=== PATIENT | female | born 1950 | race Caucasian/White ===

== ENCOUNTER 2019-07-31 08:05 | Day surgery (SDC) | payer MEDICARE, OTHER, SELFPAY ==
--- NOTE | 2019-07-28 14:02 | PCM.HP.BLA ---
History and Physical Date of Admission: 07/31/19 HPI: The patient is a 69 year old female presenting for pre-operative visit. She is scheduled for?hysteroscopy D&C with polyp resection, for?PMB/polyp on?07/31/2019. ??Procedure discussed along with risks, benefits and complications. ?Other alternatives discussed for management. Consent form signed??Yes.? PAST MEDICAL HISTORY PAST MEDICAL HISTORY Diagnosis Date ? Atrial fibrillation (HCC) 12/26/03 ? [place] ? ? Obesity ? ? PAC (premature atrial contraction) ? ? PMH - PAST MEDICAL HISTORY OF ? ? previous left ankle fracture with cartilage damage ? Unspecified hypothyroidism ? ? Hypothyroidism ? ? PAST SURGICAL HISTORY PAST SURGICAL HISTORY Procedure Laterality Date ? AFIB ABLATION/PULM VEIN ISOLATION ? 11/18/2015 ? cryo ? AFIB ABLATION/PULM VEIN ISOLATION ? 11/18/2015 ? APPENDECTOMY ? ? ? COLONOSCOPY ? ? ? remote ? FOOT SURGERY HX Left 03/25/2019 ? HYSTEROSCOPY, SURGICAL; WITH SAMPLI ? 04/08/15 ? polyp resection ? PAST SURGICAL HISTORY OF ? ? ? bilateral carpal tunnel repair ? PAST SURGICAL HISTORY OF ? ? ? Fall's neuroma left foot ? PAST SURGICAL HISTORY OF ? 2003 ? right ankle fusion ? REMOVE TONSILS/ADENOIDS,<12 Y/O ? ? ? Tonsil/adenoidectomy ? ? CURRENT MEDICATIONS Current Outpatient Medications Medication Sig Dispense Refill ? levothyroxine (SYNTHROID) 75 mcg tablet ? betamethasone valerate 0.1 % ointment Apply 1 application to affected area twice daily. until flare decreases then twice weekly as maintanence 30 g 1 ? apixaban (ELIQUIS) 5 mg tab(s) TAKE ONE (1) TABLET BY MOUTH TWICE DAILY 180 tablet 3 ? ramipril (ALTACE) 10 mg capsule Take 10 mg by mouth daily at bedtime. ? ? ? amLODIPine (NORVASC) 5 mg tablet Take 5 mg by mouth once daily. ? ? ? No current facility-administered medications for this visit.? ? ALLERGIES:?Codeine; Protonix [Pantoprazole Sodium]; Sulfa (Sulfonamide Antibiotics) ? PERSONAL HISTORY:? SOCIAL HISTORY Social History ? Tobacco Use ? Smoking status: Never Smoker ? Smokeless tobacco: Never Used Substance Use Topics ? Alcohol use: No ? Drug use: No ? FAMILY HISTORY:? FAMILY HISTORY FAMILY HISTORY Problem Relation Age of Onset ? Heart Mother ? age 54 due to heart disease or stroke ? Cancer Father ? age 71 due to multiple myeloma ? None Sister ?alive and well,age 52 ? other (Other) Brother ? age 20 due to MVA ? REVIEW OF SYMPTOMS: GENERAL: denies fevers or chills ENDOCRINOLOGY: has not been on steroids Cardiology : denies palpitations or chest pain Respiratory: denies SOB or cough Hematology:?on Eliquis Allergy: Denies history of personal or family history of allergy to anesthesia ? ? PHYSICAL EXAMINATION: ? VITALS:?Blood pressure 122/80, pulse 68, resp. rate 16, height 5' 6 (1.676 m), weight 232 lb (105.2 kg), last menstrual period 07/14/2004. ? GENERAL:??The patient is well nourished, well hydrated in no acute distress. ?, The patient is oriented to time, place, and person. NECK:?Supple. No lynphadenopathy, normal thyroid, no thyromegaly. LUNGS:?Clear to auscultation bilaterally. no wheezes, rhonchi or rales HEART:?Regular rate and rhythm, Normal heart sounds and No murmurs or gallops ? IMPRESSION:?Endometrial polyp and PMB ? PLAN:???The risks/benefits/alternatives and personal involved for the planned?hysteroscopy D&C w/ polyp resection?were reviewed with the patient. Her questions were answered to her satisfaction and she desires to proceed. ?understands risk of sergei COVID 19?Consent was signed. ?I reviewed with her postop instructions and expectations. ? ? I have reviewed and updated past medical and surgical history, medications and allergies. this history and physical was completed in my office on 07/28/2019.
[2019-07-31] VITALS (7 sets, daily range): BP systolic 92–125; BP diastolic 57–83; PULSE 68–78; RESP 16; TEMP 35.9–36.6; O2SAT 96–99; BMI 37.6
--- NOTE | 2019-07-31 | EMB_PTH ---
PATIENT: TONY DEAN [place] [facility] [id number] AGE/SX: 69/F ROOM: RE07/31/[address]: Dr. Ramona Burch MD : [id number] BED: DIS: 07/31/2019 SPEC #: [id number] RECD: 07/31/19 10:50 STATUS: JORDI RENNY #: [id number] NU: 07/31/19 00:[address]: Ramona Burch DEPT: SURGICAL PATHOLOGY RECD BY: Joaquín Chowdary Tissues: Endometrium, NOS Procedures: Surgery Specimen Level IV HEADER OPERATION: Hysteroscopy, dilation and curettage PRE-OP DIAGNOSIS: Endometrial polyp, postmenopausal bleeding TISSUE SUBMITTED: Endometrial curettings MICROSCOPIC DIAGNOSIS Endometrial curettings: Superficial fragments of benign endometrial tissue consistent with inactive endometrium. Negative for hyperplasia. Fragments of benign ecto- and endocervical epithelium. SJ:melinda 08/01/19 COMMENT Please make reference to previous specimen ([id number]) endocervical polyp, biopsy with diagnosis of benign endometrial polyp with simple cystic hyperplasia without atypia and endometrial curettings and polyp with diagnosis of simple cystic hyperplasia without atypia. MICROSCOPIC DESCRIPTION Slides are reviewed. GROSS DESCRIPTION Received in fixative is one container labeled with the patient's name and designated endometrial curettings. The specimen consists of multiple fragments of hemorrhagic mucoid tissue that in aggregate measure 3 x 2.5 x 0.1 cm. The specimen is totally submitted in one cassette. / SJ:rg 07/31/19 TC:5 CPT: 32444
[2019-07-31] MEDS: Lactated Ringers 1,000 ML 100 ML IV (08:45)
[2019-07-31] MEDS: Acetaminophen 500 MG Tablet 1000 MG PO (08:47)
[2019-07-31] MEDS: Ketorolac 30 MG/ML Syringe IV (08:47)
--- NOTE | 2019-07-31 09:38 | DCINST_ITS ---
Discharge Diet: No Restrictions Discharge Activity: Return to Normal Activity, May Shower, May Take a Tub Bath - in 2 weeks. Return to work on:: 07/21/19 May shower in (days): 1 May resume sexual activity in: 2 weeks Call your doctor if your incision/area has: Sudden Increased Bleeding, Foul Smelling Discharge Call your doctor if you observe: Fever of 101 or Higher Allergies/Adverse Reactions: Allergies rivaroxaban [From Xarelto] Allergy (Verified 07/31/19 08:24) severe vaginal bleeding Sulfa (Sulfonamide Antibiotics) Allergy (Verified 07/31/19 08:24) Unknown codeine Adverse Reaction (Verified 07/31/19 08:24) Nausea Medications to take at Discharge Amlodipine [Norvasc] 5 mg PO DAILY #30 tablet 01/19/15 Levothyroxine [Synthroid] 75 mcg PO DAILY 04/07/15 Apixaban [Eliquis] 5 mg PO BID 07/28/19 Ramipril [Altace] 10 mg PO QHS 07/28/19 traMADol [Ultram] 50 mg PO Q6H PRN PRN 07/28/19 Orders to be completed after discharge: CORONAVIRUS 19, DENNIS Time Frame: 07/30/19, Facility: [facility], Location: Laboratory Primary Care Physician: EVANGELISTA MARTINEZ [Other] Test Results: Test results from this visit will be discussed in further detail at your follow- up appointment, if applicable. Please Follow Up With: Ramona Burch MD - [phone] When: 2-4 weeks or as needed. It can be a virtual visit
--- NOTE | 2019-07-31 10:12 | PCM.OPRPT ---
Report of Operation Date of Procedure: 07/31/19 Pre-Operative Diagnosis: PMB Post-Operative Diagnosis: same Surgery/Procedure Performed:: hysteroscopy D&C Description of Surgical Findings:: atrophic endometrium, normal cervix and vagina, both tubal ostia identified. No definitive polyp drone pilot: None Type of Anesthesia:: MAC/Supplemental/Local Anesthesiologist: Eben Rangel Special Medications: none Specimen's removed: endometrial curettings Drains: none Estimated Blood Loss (mL): 10 Fluids Replaced: 700 cc LR Description of Procedure: The patient was taken to the OR where she was prepped and draped in dorsal lithotomy position. The weighted speculum was placed in the vagina and the anterior lip of the cervix was grasped with a single-tooth tenaculum. A paracervical block was administered with [1% lidocaine with 1-100,000 epinephrine solution]. The cervix was dilated serially with Hegar dilators. The [5mm] hysteroscope was placed into the uterine cavity and the above findings were noted. Bilateral tubal ostia [were] identified. I attempted to use the SYmphion for a visual D&C, however, after insertion of the resection device the camera became cloudy and despite efforts to trouble shoot the issue, I was unable to visualize the cavity adequately. Since the visual D&C could not be completed, I proceeded with a traditional D&C. The hysteroscope was removed. A gentle sharp curettage was done of the uterine cavity. The instruments were removed from the vagina. The specimen was handed off and sent to pathology. All sponge and needle counts were correct. Vaginal sweep was performed by me. The patient was awakened and taken to the recovery room in stable condition. Hysteroscopic fluid deficit is calculated to be 50 cc Grafts/Implants Used: none - Complications none - Admit VTE Documentation VTE Present on Admission: No VTE Mechan Device Prophylaxis: SCD's VTE Pharm Prophylaxis ordered?: No Reason prophylaxis not ordered:: Procedure Not Indicated
== END 2019-07-31 11:18 | disposition home or self-care (01) ==
LOC: SDC 08:10 → AC 08:12
PROVIDERS: Referring Provider Obstetrics & Gynecology; Visit Provider Obstetrics & Gynecology
PROC: 0UB98ZZ Excision of Uterus, Via Natural or Artificial Opening Endoscopic (ICD-10-PCS; CPT 58558; principal; 2019-07-31 09:25)
DX: N95.0 Postmenopausal bleeding (principal); I48.91 Unspecified atrial fibrillation; E66.9 Obesity, unspecified; E03.9 Hypothyroidism, unspecified; K21.9 Gastro-esophageal reflux disease without esophagitis; I10 Essential (primary) hypertension; Z11.59 Encounter for screening for other viral diseases; Z68.37 Body mass index [BMI] 37.0-37.9, adult; Z79.02 Long term (current) use of antithrombotics/antiplatelets; Z79.899 Other long term (current) drug therapy
CPT/HCPCS: 58558; 87635; 88305; G2023; J7120; J2405; U0004